=== PATIENT | male | born 1985 | race Caucasian/White ===

== ENCOUNTER 2020-12-11 09:46 | Emergency (ER) | payer OTHER ==
[~2020-12-11] VITALS: Ht 177.8 cm; Wt 56.8 kg
[2020-12-11 09:50] VITALS: BP 104/52
[2020-12-11] MEDS ORDERED: KETOROLAC 60 MG/2 ML VIAL. IM ONE (10:30)
[2020-12-11] MEDS ORDERED: CYCLOBENZAPRINE 10 MG TABLET. PO ONE (10:30)
[2020-12-11] MEDS ORDERED: HYDROcodone/APAP 5/325MG 1 TAB TABLET PO ONE (10:30)
[2020-12-11] MEDS ORDERED: methylPREDNISolone ACETATE 80 MG/ML VIAL. IM ONE (10:30)
--- NOTE | 2020-12-11 10:55 | PHYS DOC ---
Past Medical History Past Surgical History: No Surgical History General Adult EDM: Chief Complaint: LOWER BACK PAIN OR INJURY HPI: HPI: Patient is a 35-year-old male presents emergency department reporting while at work he bent over and felt his back pop in approximately 9 AM this morning, reports feeling a sudden onset of severe low back pain, radiation down both lower extremities, states he was unable to walk and needed assistance to get up and will be brought to the emergency department by coworkers. Patient reports a 10 out of 10 pain. Patient denies injuring his back in the past, denies falling, denies taking medications prior to arrival to the ER. Patient denies loss of bladder or bowel control, denies urinary retention. Denies numbness or tingling to his buttocks or genital area. Patient denies other complaints or concerns. Review of Systems: Review of Systems: 14 body systems of review of systems have been reviewed. See HPI for pertinent positives and negative responses, otherwise all other systems are negative, nonpertinent or noncontributory. Constitutional: Negative except as outlined in HPI above. Skin: Negative except as outlined in HPI above. Eyes: Negative except as outlined in HPI above. HENT: Negative except as outlined in HPI above. Respiratory: Negative except as outlined in HPI above. Cardiovascular: Negative except as outlined in HPI above. GI: Negative except as outlined in HPI above. : Negative except as outlined in HPI above. Musculoskeletal: Negative except as outlined in HPI above. Integument: Negative except as outlined in HPI above. Neurologic: Negative except as outlined in HPI above. Endocrine: Negative except as outlined in HPI above. Lymphatic: Negative except as outlined in HPI above. Psychiatric: Negative except as outlined in HPI above. Heart Score: C/O Chest Pain: No Risk Factors: Risk Factors: DM, Current or recent (<one month) smoker, HTN, HLP, family history of CAD, obesity. Risk Scores: Score 0 - 3: 2.5% MACE over next 6 weeks - Discharge Home Score 4 - 6: 20.3% MACE over next 6 weeks - Admit for Clinical Observation Score 7 - 10: 72.7% MACE over next 6 weeks - Early Invasive Strategies Current Medications: Current Medications Medications (Trade) Dose Ordered Sig/[place] Start Time Stop Time Status Last Admin Dose Admin Acetaminophen/ Hydrocodone Bitart (Lortab 5/325) 1 tab 1X ONCE 12/11/20 10:30 10/1/21 10:34 DC 12/11/20 10:40 1 TAB Cyclobenzaprine HCl (Flexeril) 10 mg 1X ONCE 12/11/20 10:30 12/11/20 10:34 DC 12/11/20 10:39 10 MG Ketorolac Tromethamine (Toradol Im) 60 mg 1X ONCE 12/11/20 10:30 12/11/20 10:34 DC 12/11/20 10:41 60 MG Methylprednisolone Acetate (DEPO-Medrol 80MG VIAL) 80 mg 1X ONCE 12/11/20 10:30 12/11/20 10:34 DC 12/11/20 10:43 80 MG Allergies: Allergies: Allergies Coded Allergies Type Severity Reaction Last Updated Verified No Known Drug Allergies 12/11/20 No Physical Exam: PE: Constitutional: Well developed, well nourished, no acute distress, non-toxic appearance. 35-year-old male in no apparent distress. HENT: Normocephalic, atraumatic. Eyes: Conjunctiva normal, no discharge. Neck: Normal range of motion, no stridor. Cardiovascular: No cyanosis appreciated, distal cap refill less than 2 seconds. Lungs & Thorax: Patient is in no respiratory distress, no audible adventitious lung sounds appreciated. Abdomen: Nontender, no abnormalities noted. Skin: Warm, dry, no erythema, no rash. Back: No left or right sided CVA TTP, no deformities appreciated, midline lumbar pain to palpation with radiation to the left and right, no deformities, no crepitus, no bruising appreciated, no swelling, no edema appreciated. Extremities: No tenderness, no cyanosis, no clubbing, ROM intact, no edema. Lower extremity distal cap refill less than 2 seconds, no loss of strength of lower extremities. 2+ dorsalis pedis pulses bilaterally. Neurologic: Alert and oriented X 3, normal motor function, normal sensory function, no focal deficits noted. Psychologic: Affect normal, judgement normal, mood normal. Current Patient Data: Vital Signs: Vital Signs Date Time Temp Pulse Resp B/P (MAP) Pulse Ox O2 Delivery O2 Flow Rate FiO2 12/11/20 10:40 18 97 Room Air 12/11/20 09:50 97.8 86 104/52 (69) 97.8 EKG: EKG: [] Radiology/Procedures: Radiology/Procedures: PATIENT: ABDOUL CHAN ACCOUNT: [id number] : 1985 LOCATION: ER AGE: 35 SEX: M EXAM STATUS: REG ER ORD. PHYSICIAN: ENEDINA LOPEZ APRN REASON: low back injury, midline pain PROCEDURE: CT LUMBAR SPINE WO CONTRAST PQRS Compliance Statement: One or more of the following individualized dose reduction techniques were utilized for this examination: 1. Automated exposure control 2. Adjustment of the mA and/or kV according to patient size 3. Use of iterative reconstruction technique CT LUMBAR SPINE WO 12/11/2020 10:59 AM Indication: Low back injury, midline pain COMPARISON: None available. TECHNIQUE: Multiple axial CT images of the lumbar spine are obtained with intravenous contrast. Coronal and sagittal reformats are provided. FINDINGS: There is straightening of the normal lumbar lordosis. Vertebral body heights are maintained. No acute fractures identified. Mild disc height loss L5-S1. Visualized sacrum is intact. Mild dextroconvex curvature of the lumbar spine noted. Sacroiliac joints are well aligned. Transverse processes are intact. Mild facet arthropathy L4-L5 and L5-S1. No paraspinal soft tissue abnormality is identified. No significant osseous neuroforaminal or spinal canal stenosis. There is no prevertebral edema. 3 mm nonobstructing calculus identified in the interpolar left kidney. No hydronephrosis. Urinary bladder is within normal limits given degree of distention. IMPRESSION: No acute fracture of the lumbar spine. 3 mm nonobstructing calculus in the interpolar left kidney. Electronically signed by: Carol Walden MD (12/11/2020 11:27 AM) [id number] Course & Med Decision Making: Course & Med Decision Making Pertinent Labs and Imaging studies reviewed. (See chart for details) 35-year-old male, vital signs reviewed, presents emergency department concerning sudden onset low back pain after feeling a pop while he was at work. 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 Will reevaluate after period of time. CT lumbar spine nonconcerning for acute fracture, discussed findings with patient, upon reevaluation of patient states he is starting to feel better. Discussed heating pads, ongoing low back pain care at home, follow-up with primary care soon for ongoing pain management, discussed lifting safety and mechanics of lifting heavy objects, patient gave verbal understanding of and is amenable to ED discharge planning, discussed with the patient all findings and diagnostic testing as well as the need to follow-up with their primary care provider for further evaluation and treatment or return to the ED if any new or worsening symptoms. Strict return precautions were also discussed at length, the patient voiced understanding and agreement with the discharge planning. The patient was nontoxic in appearance, in no apparent distress, and hemodynamically stable at the time of disposition. Inbilin Disclaimer: Inbilin Disclaimer: This electronic medical record was generated, in whole or in part, using a voice recognition dictation system. Departure Departure Impression: Primary Impression: Lumbar spine strain Qualified Codes: S39.012A - Strain of muscle, fascia and tendon of lower back, initial encounter Disposition: HOME / SELF CARE / HOMELESS Condition: GOOD Referrals: NO PCP (PCP) Patient Instructions: Lumbosacral Strain Additional Instructions: You were seen today in the emergency department for low back pain after lifting heavy objects at work today and feeling your back pop, a CT of your lumbar spine was performed, results are reassuring and that there is no acute fracture or other abnormality that would require immediate attention by a orthopedic surgeon or neurology specialist. As we discussed, you were given a intramuscular injection of steroid, pain medications, muscle relaxer. I am also prescribing you muscle relaxers and pain medications for home use, you may use a heating pad 30 minutes on and 30 minutes off for discomfort. We also discussed safety with lifting mechanics to help prevent further back pain exacerbations. Please follow-up with your primary care physician for ongoing pain management. Thank you for visiting our Emergency Department. It was a pleasure taking care of you today in the emergency department and we appreciate you trusting us with your care. If any additional problems come up don't hesitate to return to visit us. Please follow up with your primary care provider so they can plan additional care if needed and know about the problem that you had. If symptoms worsen come back to the Emergency Department. Any concerning symptoms that start such as chest pain, shortness of air, weakness or numbness on one side of the body, runn ing high fevers or any other concerning symptoms return to the ER. EMERGENCY DEPARTMENT GENERAL DISCHARGE INSTRUCTIONS Thank you for coming to [facility] Emergency Department (ED) today and trusting us with you care. We trust that you had a positive experience in our Emergency Department. If you wish to speak to the department management, you may call the Director at [phone]. YOUR FOLLOW UP INSTRUCTIONS ARE FOLLOWS: 1. Do you have a private Doctor? If you do not have a private doctor, please ask for a resource list of physicians or clinics that may be able to assist you with follow up care. 2. The Emergency Physicain has interpreted your x-rays. The X-Ray specialist will also review them. If there is a change in the findings, you will be notified in 48 hours when at all possible. 3. A lab test or culture has been done, your results will be reviewed and you will be notified if you need a change in treatment. ADDITIONAL INSTRUCTIONS AND INFORMATION: 1. Your care today has been supervised by a physician who is specially trained in emergency care. Many problems require more than one evaluation for a complete diagnosis and treatment. We recommend that you schedule your follow up appointment as recommended to ensure complete treatment of you illness or injury. If you are unable to obtain follow up care and continue to have a problem, or if your condition worsens, we recommend that you return to the ED. 2. We are not able to safely determine your condition over the phone nor are we able to give sound medical advice over the phone. For these safety reasons, if you call for medical advice we will ask you to come to the ED for further evaluation. 3. If you have any questions regarding these discharge instructions please call the ED at [phone]. SAFETY INFORMATION: In the interest of safety, wellness, and injury prevention; we encourage you to wear your sealbelt, if you smoke; quite smoking, and we encourage family to use a protective helmet for bicycling and other sporting events that present an increased risk for head injury. IF YOUR SYMPTOMS WORSEN OR NEW SYMPTOMS DEVELOP, OR YOU HAVE CONCERNS ABOUT YOUR CONDITION; OR IF YOUR CONDITION WORSENS WHILE YOU ARE WAITING FOR YOUR FOLLOW UP APPOINTMENT; EITHER CONTACT YOUR PRIMARY CARE DOCTOR, THE PHYSICIAN WHOSE NAME AND NUMBER YOU WERE GIVEN, OR RETURN TO THE ED IMMEDIATELY. Scripts Hydrocodone Bit/Acetaminophen (HYDROCODONE-APAP 10-325 ) 1 Tab Tablet 1 TAB PO PRN Q6HRS PRN for SEVERE PAIN 7-10, #20 TAB 0 Refills Prov: ENEDINA LOPEZ [employer] 12/11/20 Methylprednisolone (MEDROL) 4 Mg Tab.ds.pk 1 PKG PO UD for Lumber strain, #1 PKG 0 Refills Prov: ENEDINA LOPEZ [employer] 12/11/20 Ibuprofen (IBUPROFEN) 600 Mg Tablet 600 MG PO PRN Q6HRS PRN for INFLAMMATION, #30 TAB 0 Refills Prov: ENEDINA LOPEZ [employer] 12/11/20 Cyclobenzaprine Hcl (CYCLOBENZAPRINE HCL) 10 Mg Tablet 10 MG PO TID for lumber strain, #15 TAB 0 Refills Prov: ENEDINA LOPEZ [employer] 12/11/20 ENEDINA LOPEZ [employer] Dec 11, 2020 10:55
--- NOTE | 2020-12-11 11:30 | RAD ---
PQRS Compliance Statement: One or more of the following individualized dose reduction techniques were utilized for this examinat ion: 1. Automated exposure control 2. Adjustment of the mA and/or kV according to patient size 3. Use of iterative reconstruction technique CT LUMBAR SPINE WO 12/11/2020 10:59 AM Indication: Low back injury, midline pain COMPARISON: None available. TECHNIQUE: Multiple axial CT images of the lumbar spine are obtained with intravenous contrast. Coron al and sagittal reformats are provided. FINDINGS: There is straightening of the normal lumbar lordosis. Vertebral body heights are maintained. No acute fractures identified. Mild disc height loss L5-S1. Visualized sacrum is intact. Mild dextroconvex cu rvature of the lumbar spine noted. Sacroiliac joints are well aligned. Transverse processes are intac t. Mild facet arthropathy L4-L5 and L5-S1. No paraspinal soft tissue abnormality is identified. No si gnificant osseous neuroforaminal or spinal canal stenosis. There is no prevertebral edema. 3 mm nonob structing calculus identified in the interpolar left kidney. No hydronephrosis. Urinary bladder is wi thin normal limits given degree of distention. IMPRESSION: No acute fracture of the lumbar spine. 3 mm nonobstructing calculus in the interpolar left kidney. Electronically signed by: Carol Walden MD (12/11/2020 11:27 AM) [id number]
[2020-12-11] MEDS ORDERED: IBUP-1007 PO (12:30)
[2020-12-11] MEDS ORDERED: CYCL10TA2 PO (12:30)
[2020-12-11] MEDS ORDERED: METH4TAB2 PO (12:30)
[2020-12-11] MEDS ORDERED: HYDR-2769 PO (12:30)
== END 2020-12-11 12:47 | disposition home or self-care (01) ==
LOC: ER 09:46
DX: S39.012A Strain of muscle, fascia and tendon of lower back, initial encounter (principal); M79.604 Pain in right leg; M79.605 Pain in left leg; Y93.89 Activity, other specified; X50.9XXA Other and unspecified overexertion or strenuous movements or postures, initial encounter; Y92.69 Other specified industrial and construction area as the place of occurrence of the external cause; Y99.8 Other external cause status
CPT/HCPCS: 72131; 96372; 99284; J1040; J1885